=== PATIENT | female | born 1970 | race Caucasian/White ===

== ENCOUNTER → 2017-11-12 | Outpatient (CLI) | payer OTHER ==
[~2017-11-12] MED LIST: ALLERGY SHOTS; AZE137NAPT NS; AZIT1PAC21 PO; CETI-459 PO; CETI10CA8 PO; CICPT NS; CYCL-277 PO; ESC10 PO; HYDR-4309 PO; ISOM1TAB PO; KET10 PO; LEV112 PO; LEV125 PO; LEVO-317 PO; LEVO112T43 PO; MELA1TAB23 PO; MELA5TAB6 PO; MID PO; NAS20R NS; PER PO; PSEU-287 PO; TRAM-627 PO; VITAMIN D; XANAX PO; ZOLP-350 PO; [UNRECOGNIZED DRUG - REMARK]
--- NOTE | 2017-11-12 13:13 | RADIOLOGY IMAGING REPORT ---
FACILITY: [facility] PATIENT NAME: Jazmín Burton : 1970 MR: [id number] V: [id number] EXAM DATE: ORDERING PHYSICIAN: JOSE GERONMIO TECHNOLOGIST: Location: [facility] Patient: Jazmín Burton : 1970 Visit/Account:[id number] Date of Sevice: 11/12/2017 EXAMINATION: Cervical spine MRI without IV contrast HISTORY: Neck pain. Numbness and tingling in the left arm. COMPARISON: None. TECHNIQUE: Multi-planar, multi-sequence cervical spine MRI was performed without intravenous contras t administration. FINDINGS: Alignment: Straightening and slight reversal of the normal lordosis. Vertebral marrow signal: C2 and C3 vertebral bodies are partially obscured anteriorly secondary to ma gnetic susceptibility artifact coming from something in the anterior neck or face. Otherwise negative . Cranio-cervical junction: Negative. Visualized posterior fossa: Negative. Soft tissues: Negative. Cervical cord: The upper cervical spinal cord is not well seen secondary to motion artifact and magne tic susceptibility artifact. No definite abnormality in the spinal cord. Disc Spaces: C1-2: No significant stenosis. C2-3: Not well seen secondary to artifact. No definite abnormality. C3-4: Not well seen secondary to artifact. No definite abnormality. C4-5: Negative. C5-6: Small central disc protrusion. No significant stenosis. C6-7: Minimal disc bulge. No significant stenosis. C7-T1: Negative. Upper thoracic spine: Negative. IMPRESSION: 1. The upper cervical spine and spinal cord are not well seen secondary to motion artifact and magnet ic susceptibility artifact from something in the anterior neck or face. C1-C2, C2-C3, and C3-C4 are n ot well seen secondary to artifact. 2. Small disc protrusion at C5-C6. Minimal disc bulge at C6-C7. No significant stenosis below C3-C4. Report Dictated By: Yunior Bee MD at 11/12/2017 1:05 PM Report E-Signed By: Yunior Bee MD at 11/12/2017 1:09 PM WSN:[email or web address]
--- NOTE | 2017-11-12 13:24 | RADIOLOGY IMAGING REPORT ---
[place] [facility] [place] NAME: Jazmín Burton : 1970 MR: [id number] V: [id number] EXAM DATE: ORDERING PHYSICIAN: JOSE GERONIMO TECHNOLOGIST: Location: [facility] Patient: Jazmín Burton : 1970 Visit/Account:[id number] Date of Sevice: 11/12/2017 EXAMINATION: Lumbar spine MRI without IV contrast HISTORY: Low back pain. Lower extremity tingling. COMPARISON: Abdominal MRI dated 06/08/2012. TECHNIQUE: Multi-planar, multi-sequence lumbar spine MRI was performed without intravenous contrast administration. FINDINGS: Alignment: Normal. Vertebral marrow signal: Mild discogenic bone marrow edema at L4-L5. 13 x 11 x 10 mm T1 hypointense, T2 hyperintense bone marrow lesion in the left inferior L2 vertebral body (series 3, image 12; series 4, image 12; series 5, image 12; series 7, image 6), unchanged compared with the abdominal MRI dated 06/08/2012. Distal thoracic cord: Negative. Conus: negative, terminates at T12-L1 Cauda equina: Negative. Paravertebral soft tissues: Negative. Visualized abdominal and pelvic structures: Negative. Disc Spaces: Lower thoracic spine: Negative. L1-2: Negative. L2-3: Negative. L3-4: Mild disc desiccation and disc bulge. Mild facet hypertrophy. No significant spinal canal steno sis. Mild bilateral neural foraminal stenosis. L4-5: Mild disc desiccation with circumferential disc bulge and facet hypertrophy. Mild bilateral lat eral recess stenosis. Mild bilateral neural foraminal stenosis. L5-S1: Negative. IMPRESSION: Mild degenerative disc disease and facet hypertrophy at L3-L4 and L4-L5. Report Dictated By: Yunior Bee MD at 11/12/2017 1:09 PM Report E-Signed By: Yunior Bee MD at 11/12/2017 1:19 PM WSN:[email or web address]
== END ==
LOC: MRI 01:29
PROVIDERS: ATTEND Physician Assistant
DX: M50.222 Other cervical disc displacement at C5-C6 level (principal); M51.26 Other intervertebral disc displacement, lumbar region; M48.061 Spinal stenosis, lumbar region without neurogenic claudication
CPT/HCPCS: 72141; 72148

== ENCOUNTER 2018-01-13 12:51 | Outpatient (RCR) | payer OTHER ==
[2017-12-27 13:45] VITALS: BP 108/80
[2017-12-27 13:46] LABS: PLATELET COUNT, AUTOMATED 310 K/uL (150-450)
[~2018-01-13 12:51] MED LIST changes: -PSEU-287 PO; +PSEU120T69 PO
[2018-01-13 13:04] VITALS: BP 118/82
--- NOTE | 2018-01-13 19:08 | ONCOLOGY FOLLOW UP NOTE ---
EVENT DATE: January 13, 2018 DIAGNOSES 1. Stage III right colon cancer (TCIS, N1M0). 2. Hypothyroidism on thyroid supplement. 3. History of supraventricular tachycardia, status post ablation. 4. History of iron deficiency anemia. 5. Migraine headache. CHIEF COMPLAINT The patient is here today for followup of her colon cancer. ONCOLOGY HISTORY The patient is a 47-year-old female. PRESENTATION Change in habits for over a year with intermittent constipation and diarrhea, lower abdominal pain and 5-pound weight loss with fresh blood in the stools. DIAGNOSTIC EVALUATION Colonoscopy done on September 09, 2010 for evaluation of rectal bleeding showed 6 cm tumor of the right colon. Biopsy was positive for tubulovillous adenoma with high-grade dysplasia and carcinoma in situ. PROCEDURE Right colon partial colectomy done on 09/16/2010. PATHOLOGY Positive for tubulovillous adenoma with areas of high-grade dysplasia and carcinoma in situ. One out of 15 lymph nodes assembled were positive for a small focus of metastatic carcinoma. A second report in [place] mentioned that this focus in the lymph node was due to dysplastic cells. STAGING PET-CT scan done on October 13, 2010 did not show any evidence of active malignancy. STAGE Stage III (TCIS, N1M0). TREATMENT The patient received three courses of FOLFOX regimen started on November 07, 2010 , but she developed severe neuropathy including multiple neuropathies, so FOLFOX regimen was discontinued and patient continued her treatment with Xeloda therapy on December 26, 2010 and completed adjuvant chemotherapy June 2011. HISTORY OF PRESENT ILLNESS This patient is here today for followup of her colon cancer. She is doing fine currently except for being weak, tired and fatigued. She has weekly migraines. She has back and neck pain, and the patient was found to have bulging disks recently. She is also having constipation sometimes. PAST MEDICAL HISTORY 1. Supraventricular tachycardia status post ablation, December 2006. 2. Migraine. 3. Hypothyroidism on thyroid supplement. PAST SURGICAL HISTORY 1. Partial hysterectomy April 2004 for prolapsed uterus. 2. Tonsillectomy as a child. 3. Hemorrhoidectomy on September 09, 2010. 4. Intradermal nevus resection on September 09, 2010. 5. Right thigh biopsy of the intradermal nevus on September 09, 2010. 6. Thyroid biopsy of the right thyroid nodule. SOCIAL HISTORY The patient is . She has a son and daughter. 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 She has about three drinks per week. She has never smoked. No abuse of drugs. FAMILY HISTORY Maternal uncle had colon cancer at the age of fifty-nine. Paternal grandmother with uterine cancer at the age of ninety-one. Maternal aunt with breast cancer in her seventies. Maternal aunt with colon cancer at age sixty-five. This maternal aunt has also a history of lymphoma. Father had colon polyp at the age of sixty. CURRENT MEDICATIONS 1. Pseudoephedrine, Sudafed 120 mg tablet daily. 2. Levothyroxine 112 mcg daily. 3. Zyrtec 10 mg as needed. 4. Nasacort 16.5 gm daily. ALLERGIES No known drug allergies. REVIEW OF SYSTEMS CONSTITUTIONAL: No appetite or weight change. No fever, chills or sweating. No recent infection. HEENT: Ears: No tinnitus or hearing problem. Nose: No nasal discharge or epistaxis. Throat: No sore throat or mouth ulcers. Eyes: No diplopia or visual changes. RESPIRATORY: No shortness of breath. No cough, expectoration or hemoptysis. CARDIOVASCULAR: No chest pain, orthopnea, or paroxysmal nocturnal dyspnea (PND) . No edema. No palpitations. GASTROINTESTINAL: The patient has constipation. GENITOURINARY: No hematuria or dysuria. MUSCULOSKELETAL: She has back and neck pain due to bulging disks. NEUROLOGICAL: She has weekly migraine. HEMATOLOGIC/LYMPHATIC: No bleeding or easy bruising. She is weak, tired and fatigued. No enlarged lymph nodes. SKIN: No skin rash or lumps. PSYCHIATRIC: No anxiety or depression. No known drug allergies. PHYSICAL EXAMINATION GENERAL: Looks stable. Well-developed, well-nourished, and in no acute distress. VITAL SIGNS: Blood pressure 118/82, pulse 66 per minute, respirations 16 per minute, temperature 97.2, pulse ox 99% on room air. HEENT: Head: Atraumatic. No sinus tenderness to palpation. Eyes: No icterus or conjunctivitis. Mouth and throat: No oral thrush or mucositis. NECK: Supple. No cervical or supraclavicular lymphadenopathy. LUNGS: Clear to auscultation and percussion bilaterally. HEART: Regular rate and rhythm. No gallops, murmurs, clicks or rubs. ABDOMEN: Soft and lax. No tenderness. No hepatosplenomegaly. No masses. EXTREMITIES: No cyanosis, clubbing or edema. LYMPHATICS: No peripheral lymphadenopathy. NEUROLOGICAL: Conscious, alert and oriented times three. No focal motor or sensory deficits. PSYCHIATRIC: Mood and affect appear normal. SKIN: No skin rash, bruise or purpuric eruption. DIAGNOSTIC DATA CBC showed white count 8000, hemoglobin 14.4, hematocrit 42.2, platelets 310, 000. Chem panel is totally normal. Vitamin D level is 32. CEA is normal at 1.2. ASSESSMENT 1. 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 One out of 15 lymph nodes was positive for a small focus of metastatic adenocarcinoma. The patient was diagnosed with stage III based on N1 status. Patient received three courses of FOLFOX between October through December 05, 2010. 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 The patient continued her adjuvant chemotherapy with capecitabine between December 26, 2010 through June 2011. Her current CEA is normal at 1.2. Patient is doing fine. Her repeat colonoscopy showed a polyp with recommendation of colonoscopy in three to five years. I am planning to continue followup. I will see her again in a year from now with CBC, chem panel and CEA. 2. Hypothyroidism, on supplement. 3. Vitamin D deficiency, currently on vitamin D supplement. Her current vitamin D level is 32, which is sufficient. We will continue vitamin D at 1000 units daily. 4. Migraine headache, followed by her neurologist for that. PLAN 1. Continue followup. 2. The patient to return in one year with CBC, chem panel and CEA. 3. Patient to contact us for any new concern or complaints. LORA
== END 2018-02-04 16:22 | disposition home or self-care (01) ==
LOC: ONC 12:51
PROVIDERS: ATTEND Internal Medicine Hematology
DX: Z85.038 Personal history of other malignant neoplasm of large intestine (principal); E03.9 Hypothyroidism, unspecified; E55.9 Vitamin D deficiency, unspecified; G43.909 Migraine, unspecified, not intractable, without status migrainosus; R53.1 Weakness; R53.83 Other fatigue; Z79.899 Other long term (current) drug therapy
CPT/HCPCS: 36415; 82040; 82247; 82306; 82310; 82374; 82378; 82435; 82565; 82947; 84075; 84132; 84155; 84295; 84450; 84460; 84520; 85025; 99212

== ENCOUNTER 2018-05-02 16:25 | Emergency (ER) | payer OTHER ==
[2018-05-02 17:23] LABS: PLATELET COUNT, AUTOMATED 275 K/uL (150-450)
[2018-05-02] MEDS ORDERED: DULO60CA56 PO (17:39)
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
[2018-05-02] MEDS ORDERED: MULTIVITAMINS(*) 10 ML VIAL 10 ML, THIAMINE HCL(*) 200 MG/2 ML IN 100 MG, FOLIC ACID(*)... IV ONE (18:05)
[2018-05-02] MEDS ORDERED: FAMOTIDINE(*) 20MG/50ML PREMIX 50 ML IVPB ONE (18:45)
[2018-05-02] MEDS ORDERED: DULO30CA35 PO (18:48)
[2018-05-02] MEDS ORDERED: ESOM40CA42 PO (18:49)
[2018-05-02 18:59] VITALS: BP 132/96
== END 2018-05-02 19:00 | disposition home or self-care (01) ==
LOC: ER 17:21
DX: F10.10 Alcohol abuse, uncomplicated (principal); K21.9 Gastro-esophageal reflux disease without esophagitis; F32.9 Major depressive disorder, single episode, unspecified
CPT/HCPCS: 80305; 80320; 80329; 81001; 82040; 82150; 82247; 82310; 82374; 82435; 82565; 82947; 83690; 83735; 84075; 84132; 84155; 84295; 84443; 84450; 84460; 84520; 84703; 85025; 86677; 99283

== ENCOUNTER 2018-05-24 11:40 | Emergency (ER) | payer OTHER ==
[~2018-05-24 11:40] MED LIST changes: +DULO30CA35 PO; +DULO60CA56 PO; +ESOM40CA42 PO
--- NOTE | 2018-05-24 12:42 | EKG ---
FACILITY: [facility] PATIENT NAME: SANDRINE BOWLING : [id number] MR: [id number] V: [id number] EXAM DATE: ORDERING PHYSICIAN: GI JAMES TECHNOLOGIST: ALESIA Test Reason : BHS Blood Pressure : / mmHG Vent. Rate : 079 BPM Atrial Rate : 079 BPM P-R Int : 092 ms QRS Dur : 078 ms QT Int : 378 ms P-R-T Axes : 056 086 049 degrees QTc Int : 433 ms Sinus rhythm with short AK Otherwise normal ECG When compared with ECG of 14-OCT-2016 19:55, No significant change was found Confirmed by Dangelo Sosa ([id number] on 05/25/2018 12:09:15 AM Referred By: JACOB Confirmed By:Dangelo Napoles
[2018-05-24 12:56] LABS: PLATELET COUNT, AUTOMATED 355 K/uL (150-450)
--- NOTE | 2018-05-24 13:41 | ER Report ---
History and Physical Time Seen By MD: 12:15 Hx. of Stated Complaint: "I am having extreme anxiety and depression and drinking alot. I dont want to live like this. I need help" HPI/ISRAEL CHIEF COMPLAINT: Requesting admission for alcohol abuse HISTORY OF PRESENT ILLNESS: Patient is a very pleasant 48-year-old female who presents to the emergency Department with concerns of alcohol abuse depression and some fleeting suicidal ideation. Patient drinks between 1 and 1-1/2 bottles of wine each night although last evening she drank a bottle and a half of wine and had some shots of vodka. He feels that she has a problem with alcohol. She has gone through withdrawal in the past. She is also treated for depression and is medicated with Cymbalta 60 mg daily but she quit approximately one week ago. She states that she was hoping that she just would not wake up this morning patient states that her "likes to drink as well" she states that she is estranged from her 24-year-old daughter this is secondary to problems with her alcohol use and abuse. REVIEW OF SYSTEMS: Respiratory: No cough, no dyspnea. Cardiovascular: No chest pain, no palpitations. Gastrointestinal: No vomiting, no abdominal pain. Musculoskeletal: No back pain. Allergies: Coded Allergies: No Known Drug Allergies (Verified , 05/24/18) Uncoded Allergies: HAYFEVER (Allergy, Unknown, 03/15/14) Home Meds Reported Medications Melatonin (MELATONIN) 5 Mg Tablet, 5 MG PO HS 12/29/16 Isomethepten/Caf/Acetaminophen (Vuibfqskxq-Tpcl-Mfsloexrwmzfx) 1 Each Tablet, 2 TAB PO PRN Y for MIGRAINE 12/29/16 Levothyroxine Sodium (LEVOXYL) 125 Mcg Tablet, 112 MCG PO QDAY, TAB 12/29/16 Cetirizine Hcl (Zyrtec) 10 Mg Capsule, 10 MG PO PRN, 0 Refills 09/17/11 Triamcinolone Acet (Nasacort Aq) 16.5 Gm [place], 1 SPRAY NS DAILY Y, 0 Refills 09/17/11 Discontinued Reported Medications Duloxetine Hcl (CYMBALTA) 60 Mg Capsule.dr, 60 MG PO QDAY, #5 CAP 05/02/18 Discontinued Scripts Esomeprazole Magnesium (NEXIUM) 40 Mg Capsule.dr, 1 CAP PO QDAY, #30 CAP Prov:ELIECER FARAH CHARLIE 05/02/18 Duloxetine Hcl (CYMBALTA) 30 Mg Capsule.dr, 30 MG PO QDAY, #30 CAP Prov:ELIECER FARAH CHARLIE 05/02/18 Past Medical/Surgical History Past medical history significant for supraventricular tachycardia; status post ablation. History of depression Hx Smoking: No Smoking Status: Never Smoker Hx Substance Use Disorder: No Hx Alcohol Use: Yes (OCC USE) Constitutional Vital Sign - Last 24 Hours 05/24/18 05/24/18 05/24/18 05/24/18 12:09 12:26 12:30 12:40 Temp 97.1 Pulse 98 80 Resp 20 17 B/P (MAP) 110/71 127/86 (100) 117/103 (108) Pulse Ox 92 O2 Delivery Room Air 05/24/18 05/24/18 05/24/18 05/24/18 13:00 13:10 13:30 13:35 Pulse 74 ??? Resp 8 B/P (MAP) 117/86 (96) 110/75 (87) 05/24/18 05/24/18 05/24/18 05/24/18 13:50 14:00 14:05 14:20 Pulse 78 78 81 Resp 10 0 13 B/P (MAP) 118/84 (95) 05/24/18 05/24/18 14:30 14:35 Pulse 82 Resp 14 B/P (MAP) 124/79 (94) Physical Exam General Appearance: The patient is alert, has no immediate need for airway protection and no signs of toxicity. [ ] Eyes: Pupils equal and round no pallor or injection. ENT, Mouth: Mucous membranes are moist. Respiratory: There are no retractions, lungs are clear to auscultation. Cardiovascular: Regular rate and rhythm. [ ] Gastrointestinal: Abdomen is soft and non tender, no masses, bowel sounds normal. Neurological: Awake and alert Skin: Warm and dry, no rashes. Musculoskeletal: Neck is supple non tender. Extremities are nontender, nonswollen and have full range of motion. Psychiatric: Patient is tearful affect congruent with mood, patient with some thoughts of suicide without active plan. Patient does not seem to be responding to any internal stimuli. For process is logical and goal-directed. Medical Decision Making Data Points Result Diagram: 05/24/18 1251 05/24/18 1251 Laboratory Hematology Test 05/24/18 12:51 05/24/18 13:38 Red Blood Count 4.71 M/uL (4.17-5.56) Mean Corpuscular Volume 88.7 fL (80.0-96.0) Mean Corpuscular Hemoglobin 31.4 pg (26.0-33.0) Mean Corpuscular Hemoglobin Concent 35.4 g/dL (32.0-36.0) Red Cell Distribution Width 12.7 % (11.5-14.5) Mean Platelet Volume 8.2 fL (7.2-11.1) Neutrophils (%) (Auto) 54.6 % (39.4-72.5) Lymphocytes (%) (Auto) 33.2 % (17.6-49.6) Monocytes (%) (Auto) 11.4 % (4.1-12.4) Eosinophils (%) (Auto) 0.4 % (0.4-6.7) Basophils (%) (Auto) 0.4 % (0.3-1.4) Nucleated RBC Relative Count (auto) 0.0 /100WBC Neutrophils # (Auto) 5.5 K/uL (2.0-7.4) Lymphocytes # (Auto) 3.4 K/uL (1.3-3.6) Monocytes # (Auto) 1.1 K/uL (0.3-1.0) Eosinophils # (Auto) 0.0 K/uL (0.0-0.5) Basophils # (Auto) 0.0 K/uL (0.0-0.1) Nucleated RBC Absolute Count (auto) 0.00 K/uL Sodium Level 138 mmol/L (137-145) Potassium Level 4.0 mmol/L (3.5-5.0) Chloride Level 103 mmol/L (98-107) Carbon Dioxide Level 26 mmol/L (22-31) Blood Urea Nitrogen 20 mg/dl (7-18) Creatinine 0.80 mg/dl (0.52-1.04) Glomerular Filtration Rate Calc > 60.0 Random Glucose 102 mg/dl (75-110) Calcium Level 9.3 mg/dl (8.4-10.2) Magnesium Level 1.6 mg/dl (1.7-2.2) Total Bilirubin 0.4 mg/dl (0.2-1.3) Aspartate Amino Transf (AST/SGOT) 31 U/L (0-35) Alanine Aminotransferase (ALT/SGPT) 43 U/L (0-56) Alkaline Phosphatase 43 U/L (0-126) Total Protein 7.0 g/dl (6.3-8.2) Albumin 4.5 g/dl (3.5-5.0) Thyroid Stimulating Hormone (TSH) 0.88 uIU/ml (0.46-4.68) Salicylates Level < 10 mg/L Salicylate Last Dose Date unk Acetaminophen Level < 10 ug/ml Serum Alcohol < 10 mg/dl Urine Color Straw Urine Clarity Clear Urine pH 7.0 pH (4.8-9.5) Urine Specific [place] 1.011 Urine Protein Negative mg/dL (NEGATIVE) Urine Glucose (UA) Negative mg/dL (NEGATIVE) Urine Ketones Negative mg/dL (NEGATIVE) Urine Blood Negative (NEGATIVE) Urine Nitrite Negative (NEGATIVE) Urine Bilirubin Negative (NEGATIVE) Urine Urobilinogen Negative mg/dL (0.2-1.9) Urine Leukocyte Esterase Negative (NEGATIVE) Urine RBC None /HPF (0-2/HPF) Urine WBC None /HPF (0-5/HPF) Urine Squamous Epithelial Cells Moderate /LPF (</=FEW) Urine Bacteria Negative /HPF (NONE-FEW) Urine Mucus None /HPF (NONE-FEW) Urine HCG, Qualitative Negative (NEGATIVE) Urine Opiates Screen Negative Urine Barbiturates Screen Negative Ur Tricyclic Antidepressants Screen Negative Urine Phencyclidine Screen Negative Urine Amphetamines Screen Negative Urine Benzodiazepines Screen Negative Urine Cocaine Screen Negative Urine Cannabinoids Screen Negative Chemistry Test 05/24/18 12:51 05/24/18 13:38 White Blood Count 10.1 k/uL (4.5-11.0) Red Blood Count 4.71 M/uL (4.17-5.56) Hemoglobin 14.8 g/dL (12.0-16.0) Hematocrit 41.8 % (34.0-47.0) Mean Corpuscular Volume 88.7 fL (80.0-96.0) Mean Corpuscular Hemoglobin 31.4 pg (26.0-33.0) Mean Corpuscular Hemoglobin Concent 35.4 g/dL (32.0-36.0) Red Cell Distribution Width 12.7 % (11.5-14.5) Platelet Count 355 K/uL (150-450) Mean Platelet Volume 8.2 fL (7.2-11.1) Neutrophils (%) (Auto) 54.6 % (39.4-72.5) Lymphocytes (%) (Auto) 33.2 % (17.6-49.6) Monocytes (%) (Auto) 11.4 % (4.1-12.4) Eosinophils (%) (Auto) 0.4 % (0.4-6.7) Basophils (%) (Auto) 0.4 % (0.3-1.4) Nucleated RBC Relative Count (auto) 0.0 /100WBC Neutrophils # (Auto) 5.5 K/uL (2.0-7.4) Lymphocytes # (Auto) 3.4 K/uL (1.3-3.6) Monocytes # (Auto) 1.1 K/uL (0.3-1.0) Eosinophils # (Auto) 0.0 K/uL (0.0-0.5) Basophils # (Auto) 0.0 K/uL (0.0-0.1) Nucleated RBC Absolute Count (auto) 0.00 K/uL Glomerular Filtration Rate Calc > 60.0 Calcium Level 9.3 mg/dl (8.4-10.2) Magnesium Level 1.6 mg/dl (1.7-2.2) Total Bilirubin 0.4 mg/dl (0.2-1.3) Aspartate Amino Transf (AST/SGOT) 31 U/L (0-35) Alanine Aminotransferase (ALT/SGPT) 43 U/L (0-56) Alkaline Phosphatase 43 U/L (0-126) Total Protein 7.0 g/dl (6.3-8.2) Albumin 4.5 g/dl (3.5-5.0) Thyroid Stimulating Hormone (TSH) 0.88 uIU/ml (0.46-4.68) Salicylates Level < 10 mg/L Salicylate Last Dose Date unk Acetaminophen Level < 10 ug/ml Serum Alcohol < 10 mg/dl Urine Color Straw Urine Clarity Clear Urine pH 7.0 pH (4.8-9.5) Urine Specific [place] 1.011 Urine Protein Negative mg/dL (NEGATIVE) Urine Glucose (UA) Negative mg/dL (NEGATIVE) Urine Ketones Negative mg/dL (NEGATIVE) Urine Blood Negative (NEGATIVE) Urine Nitrite Negative (NEGATIVE) Urine Bilirubin Negative (NEGATIVE) Urine Urobilinogen Negative mg/dL (0.2-1.9) Urine Leukocyte Esterase Negative (NEGATIVE) Urine RBC None /HPF (0-2/HPF) Urine WBC None /HPF (0-5/HPF) Urine Squamous Epithelial Cells Moderate /LPF (</=FEW) Urine Bacteria Negative /HPF (NONE-FEW) Urine Mucus None /HPF (NONE-FEW) Urine HCG, Qualitative Negative (NEGATIVE) Urine Opiates Screen Negative Urine Barbiturates Screen Negative Ur Tricyclic Antidepressants Screen Negative Urine Phencyclidine Screen Negative Urine Amphetamines Screen Negative Urine Benzodiazepines Screen Negative Urine Cocaine Screen Negative Urine Cannabinoids Screen Negative Toxicology Test 05/24/18 12:51 05/24/18 13:38 Salicylates Level < 10 mg/L Salicylate Last Dose Date unk Acetaminophen Level < 10 ug/ml Serum Alcohol < 10 mg/dl Urine Opiates Screen Negative Urine Barbiturates Screen Negative Ur Tricyclic Antidepressants Screen Negative Urine Phencyclidine Screen Negative Urine Amphetamines Screen Negative Urine Benzodiazepines Screen Negative Urine Cocaine Screen Negative Urine Cannabinoids Screen Negative Urinalysis Test 05/24/18 13:38 Urine Color Straw Urine Clarity Clear Urine pH 7.0 pH (4.8-9.5) Urine Specific [place] 1.011 Urine Protein Negative mg/dL (NEGATIVE) Urine Glucose (UA) Negative mg/dL (NEGATIVE) Urine Ketones Negative mg/dL (NEGATIVE) Urine Blood Negative (NEGATIVE) Urine Nitrite Negative (NEGATIVE) Urine Bilirubin Negative (NEGATIVE) Urine Urobilinogen Negative mg/dL (0.2-1.9) Urine Leukocyte Esterase Negative (NEGATIVE) Urine RBC None /HPF (0-2/HPF) Urine WBC None /HPF (0-5/HPF) Urine Squamous Epithelial Cells Moderate /LPF (</=FEW) Urine Bacteria Negative /HPF (NONE-FEW) Urine Mucus None /HPF (NONE-FEW) Urine HCG, Qualitative Negative (NEGATIVE) EKG/Imaging Monitor Interpretation: Normal Sinus Rhythm (with short [place]) ED Course/Re-evaluation ED Course 05/24/2018 1:37:43 pm patient with suicidal ideation, depression and wishes to come in for alcohol abuse. Patient is calm and cooperative. Medical screening exam is unremarkable we'll call for admission Decision to Disposition Date: May 24, 2018 Decision to Disposition Time: 16:07 Depart Departure Latest Vital Signs Vital Signs Date Time Temp Pulse Resp B/P (MAP) Pulse Ox O2 Delivery O2 Flow Rate FiO2 05/24/18 14:35 82 14 05/24/18 14:30 124/79 (94) 05/24/18 12:09 97.1 92 Room Air Impression: Primary Impression: Depression Additional Impression: Alcohol abuse Condition: Improved Disposition: XFER TO [facility] (to Dr Healy) Referrals: JOSE GERONIMO PA-C (PCP) Problem Qualifiers Primary Impression: Depression Depression Type: reactive depression Qualified Codes: F32.9 - Major depressive disorder, single episode, unspecified GI JAMES MD May 24, 2018 13:41
[2018-05-24 14:30] VITALS: BP 124/79
[2018-05-25] MEDS ORDERED: DULO60CA56 PO (12:36)
[2018-05-25] MEDS ORDERED: DULO30CA35 PO (12:50)
== END 2018-05-24 15:20 ==
LOC: ER 11:59
DX: F32.9 Major depressive disorder, single episode, unspecified (principal); F10.10 Alcohol abuse, uncomplicated; Y90.0 Blood alcohol level of less than 20 mg/100 ml; Z79.899 Other long term (current) drug therapy
CPT/HCPCS: 36415; 80305; 80320; 80329; 81001; 81025; 82040; 82247; 82310; 82374; 82435; 82565; 82947; 83735; 84075; 84132; 84155; 84295; 84443; 84450; 84460; 84520; 85025; 93005; 99284

== ENCOUNTER 2018-05-24 14:35 | Inpatient (IN) | payer OTHER ==
[~2018-05-24] VITALS: Ht 172.7 cm; Wt 66.2 kg
[2018-05-24] MEDS ORDERED: MAG HYD/AL HYD/SIMETH 30ML UDC PO PRN (15:10)
[2018-05-24 15:39] VITALS: BP 105/80
[2018-05-24] MEDS: DIAZEPAM 10 MG TAB PO PRN ×2 (16:09→21:08)
[2018-05-24] MEDS ORDERED: CETIRIZINE HCL 10 MG TAB PO PRN (19:15)
[2018-05-24] MEDS ORDERED: CAFF PO PRN (19:25)
[2018-05-24] MEDS ORDERED: ACETAMINOPH PO PRN (19:25)
[2018-05-24] MEDS ORDERED: [UNRECOGNIZED DRUG - OTHER] OU PRN (19:25)
[2018-05-24] MEDS ORDERED: ISOMETHEPTENE PO PRN (19:25)
[2018-05-24 20:29] VITALS: BP 128/78
[2018-05-25] MEDS: LEVOTHYROXINE SOD 0.112 MG TAB PO SCH (05:58)
[2018-05-25 06:00] VITALS: BP 111/70
[2018-05-25] MEDS: FOLIC ACID 1 MG TAB PO SCH (08:14)
[2018-05-25] MEDS: MULTIVITAMINS TAB PO SCH (08:14)
[2018-05-25] MEDS: THIAMINE HCL 100 MG TAB PO SCH (08:14)
[2018-05-25] MEDS ORDERED: IBUPROFEN 600 MG TAB PO PRN (09:20)
[2018-05-25 10:00] VITALS: BP 104/81
[2018-05-25 10:30] VITALS: BP 92/64
[2018-05-25] MEDS ORDERED: DULO60CA56 PO (12:36)
[2018-05-25] MEDS ORDERED: DULO30CA35 PO (12:50)
[2018-05-25] MEDS: OMEGA-3 500 MG CAP PO SCH (13:43)
[2018-05-25] MEDS: DULoxetine HCL 30 MG CAPCR PO SCH (13:43)
[2018-05-25] MEDS: CHOLECALCIFEROL 1000 UNIT TAB PO SCH (13:43)
[2018-05-25 14:40] VITALS: BP 118/79
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
[2018-05-25 18:38] VITALS: BP 110/80
[2018-05-25] MEDS: traZODone HCL 50 MG TAB PO SCH (21:27)
[2018-05-25] MEDS: MELATONIN 3 MG TAB PO SCH (21:27)
[2018-05-26] MEDS: LEVOTHYROXINE SOD 0.112 MG TAB PO SCH (05:40)
[2018-05-26 06:19] VITALS: BP 110/79
[2018-05-26] MEDS: DULoxetine HCL 30 MG CAPCR PO SCH (08:04)
[2018-05-26] MEDS: CHOLECALCIFEROL 1000 UNIT TAB PO SCH (08:04)
[2018-05-26] MEDS: THIAMINE HCL 100 MG TAB PO SCH (08:04)
[2018-05-26] MEDS: FOLIC ACID 1 MG TAB PO SCH (08:04)
[2018-05-26] MEDS: MULTIVITAMINS TAB PO SCH (08:05)
[2018-05-26] MEDS: OMEGA-3 500 MG CAP PO SCH (08:05)
[2018-05-26 09:28] VITALS: BP 102/71
--- NOTE | 2018-05-26 10:07 | [facility] Progress Note ---
[facility] - Subjective Progress Notes Subjective Patient's alcohol withdrawal nearing completion, mood continues to improve. Patient contemplating her relationship with her upon discharge, and how alcohol will be absent for her, but possibly still part of her 's life. Patient reports good sleep on trazodone, and wishes to continue current dose of cymbalta. Mood improved, no other concerns. Suicidal Ideation: Resolving Homicidal Ideation: None [facility] - Objective Physical Exam Vital Signs Vital Signs Date Time Temp Pulse Resp B/P (MAP) Pulse Ox O2 Delivery O2 Flow Rate FiO2 05/26/18 09:28 98.3 94 102/71 (81) 96 Room Air 05/26/18 06:19 15 Muscle Strength and Tone: WNL Gait and Station: Steady [facility] Medications Reviewed: Side Effects, Benefits of Medication, Risks Allergies Reviewed: Yes Mental Status Exam General Appearance: Casual, Well Groomed, Good Eye Contact, Cooperative, Polite , Good Interaction, No Tearful, No Psychomotor Agitation, No Psychomotor Retardation, No Bizarre Mannerisms, No Tics Speech: Clear, Spontaneous, Normal Rate, Normal Rhythm, Normal Volume, Normal Tone, Garbled, Rambling, Inappropriate Mood: Dysthmic/Depressed (improved) Affect: Full and Appropriate, Calm, No Tearful, No Anxious, No Agitated Thought Process: Organized, Logical, Goal Directed, No Loose Associations, No Flight of Ideas Thought Content: No Suicidal Ideation, No Homicidal Ideation, No Delusions, No Auditory Halllucinations, No Visual Hallucinations, No Thought Broadcasting, No Ideas of Reference, No Obsessions, No Compulsions Sensorium: Clear Cognition: Alert & Oriented-Person, Alert & Oriented-Place, Alert & Oriented- Time, Srkse-Kmwmyeco-Hcverdion Memory: Immediate, Recent, Remote Intelligence: Average Insight Judgment: Fair (in absence of alcohol) [facility] Assessment and Plan [id number] Encounter Date: May 26, 2018 [id number] Encounter Time: 10:00 [facility] Plan: Necessary Precautions, Individual/Group Therapy, Admin/Titrate Meds, Educate Patient Tobacco Medications: Not Appropriate Condition Multpiple Antipsychotics Used: No Problems: (1) Alcohol withdrawal Status: Acute (2) Persistent depressive disorder Status: Chronic (3) Partner relational problem Status: Chronic (4) Alcohol use disorder, moderate, in early remission Status: Chronic Condition 1. continue treatment. 2. likely discharge tomorrow. Problem Qualifiers (1) Alcohol withdrawal: Complication of substance-induced condition: uncomplicated Qualified Codes: F10.230 - Alcohol dependence with withdrawal, uncomplicated DANIA FINK MD May 26, 2018 10:06
[2018-05-26] MEDS: traZODone HCL 50 MG TAB PO SCH (20:58)
[2018-05-26] MEDS: MELATONIN 3 MG TAB PO SCH (21:00)
[2018-05-27] MEDS: LEVOTHYROXINE SOD 0.112 MG TAB PO SCH (05:42)
[2018-05-27 05:43] VITALS: BP 121/79
[2018-05-27] MEDS: THIAMINE HCL 100 MG TAB PO SCH (07:37)
[2018-05-27] MEDS: FOLIC ACID 1 MG TAB PO SCH (07:37)
[2018-05-27] MEDS: DULoxetine HCL 30 MG CAPCR PO SCH (07:37)
[2018-05-27] MEDS: CHOLECALCIFEROL 1000 UNIT TAB PO SCH (07:37)
[2018-05-27] MEDS: MULTIVITAMINS TAB PO SCH (07:37)
[2018-05-27] MEDS: OMEGA-3 500 MG CAP PO SCH (07:37)
[2018-05-27 08:57] VITALS: BP 123/72
[2018-05-27] MEDS ORDERED: TRAZ50TA34 PO (09:28)
[2018-05-27] MEDS ORDERED: OMEG1CAP39 PO (09:29)
[2018-05-27] MEDS ORDERED: FOLI-68 PO (09:29)
[2018-05-27] MEDS ORDERED: MULT-859 PO (09:30)
[2018-05-27] MEDS ORDERED: THIA100T2 PO (09:30)
[2018-05-27] MEDS ORDERED: SYSTANODPT OU (09:31)
--- NOTE | 2018-05-27 19:33 | DISCHARGE SUMMARY ---
Patient was seen at approximately 0940 hours on the a.m. of May 27, 2018 for note concerning this dictation. FINAL DIAGNOSES PER DSM-V Alcohol use disorder moderate. Alcohol withdrawal, considered complete. Partner relational problem. Rule out substance-induced mood disorder. Likely persisting depressive disorder. Patient overall having supportive relationship, however, with spouse, although partner relational problem does likely exist secondary primary to alcohol use in both members. REASON FOR ADMISSION This is a very pleasant 48-year-old female initially admitted for alcohol withdrawal. Alcohol withdrawal was treated to completion. Clinically it was considered mild withdrawal in nature. Patient was found to have other stressors in her life, some of which are related to alcohol use. Patient even having brief suicidal ideation while on the unit, however, this did resolve. Patient was very cooperative, took an active role in her treatment. PHYSICAL EXAMINATION GENERAL: Please see emergency room note. Notable for a healthy-appearing 48- year-old female in no acute medical distress. VITAL SIGNS: At the time of admission, temperature 97.1, pulse 98, respiratory rate 20, blood pressure 110/71 and pulse oximetry 92 on room air. LABORATORY DATA CBC unremarkable. CMP notable for magnesium slightly low at 1.6, otherwise unremarkable. TSH 0.88 at the time of admission. Urinalysis unremarkable. screen negative. Toxicology screen negative with a nondetectable serum alcohol level at the time of admission. MENTAL STATUS EXAMINATION AT THE TIME OF DISCHARGE GENERAL APPEARANCE, BEHAVIOR AND ATTITUDE: This is a very polite, cooperative 48-year-old female, well groomed, making good eye contact, interacting well with this provider, treatment team staff and her present in the room. No bizarre mannerisms or tics. No periods of tearfulness. SPEECH: Within normal limits, regular rate, rhythm, volume and tone. MOOD: Described as good. AFFECT: Full and bright. THOUGHT PROCESSES: Logical, goal directed. No loose associations or flight of ideas. THOUGHT CONTENT: Free of auditory or visual hallucinations, ideas of reference , thought broadcastings, delusions, obsessions, compulsions. Patient adamantly denying suicidal or homicidal ideation. SENSORIUM: Clear. COGNITION: Alert and oriented to person, place, time and situation. MEMORY: Immediate, recent and remote estimated intact. INTELLIGENCE: Average based on interview. INSIGHT AND JUDGMENT: Considered grossly intact in the absence of alcohol use. RESULTS OF TESTING IMAGING: None. LABORATORY DATA: See above. CONSULTATIONS: None. TREATMENT Patient received medications, participated in individual and group therapy. HOSPITAL COURSE Patient's alcohol withdrawal was considered mild in nature and treated to completion with diazepam per [facility] protocol. Patient then started on sleep aid trazodone and for its antidepressant effects. Patient restarted Cymbalta at 30 mg q.a.m., which she had stopped abruptly prior to admission. The patient continued to improve, took an active role in her treatment. CONDITION OF PATIENT ON DISCHARGE Stable. Considered minimal risk to herself or others and appropriate for outpatient management. DISPOSITION Patient discharged to home to the care of her . It was encouraged that they both abstain from all alcohol. Patient would go to and obtain a sponsor. Patient would follow up with outpatient medication management and therapy. Crisis line was given should symptoms return. Discharge medications included Cymbalta 30 mg q.a.m., trazodone 50-150 mg p.o. at bedtime p.r.n. for insomnia, fish oil 1000 mg daily, folic acid 1 mg daily over the counter, melatonin as needed over the counter, Synthroid 112 mcg daily, multivitamin with mineral daily, thiamine 100 mg daily over the counter, vitamin D3 1000 international units daily. Patient can take Motrin and Prodrin as needed for headache and continue to use Systane eyedrops as needed. Zyrtec 10 mg could be continued as needed as well. Risks, benefits and alternatives of the above discharge plan were discussed. Informed consent was given to proceed with above discharge plan by this competent patient and patient's present at the time of discharge. LORA
== END 2018-05-27 13:15 | disposition home or self-care (01) | DRG 897 ==
LOC: BHS 14:35
PROVIDERS: ADMIT Psychiatry & Neurology Psychiatry; ATTEND Psychiatry & Neurology Psychiatry
DX: F10.230 Alcohol dependence with withdrawal, uncomplicated (principal); R45.851 Suicidal ideations; F10.24 Alcohol dependence with alcohol-induced mood disorder; F34.1 Dysthymic disorder; Y90.0 Blood alcohol level of less than 20 mg/100 ml; Z62.820 Parent-biological child conflict; Z63.0 Problems in relationship with spouse or partner; Z91.410 Personal history of adult physical and sexual abuse; Z91.411 Personal history of adult psychological abuse; Z90.710 Acquired absence of both cervix and uterus; Z91.5 Personal history of self-harm

== ENCOUNTER → 2019-01-04 | Outpatient (CLI) | payer OTHER ==
[~2019-01-04] MED LIST changes: +FOLI-68 PO; -HYDR-4309 PO; +HYDR-653 PO; +IOPAMIDOL 76% 150 ML INFUS BTL 150 ML ONE; +MULT-859 PO; +OMEG1CAP39 PO; +SYSTANODPT OU; +THIA100T2 PO; +TRAZ50TA34 PO
--- NOTE | 2019-01-04 20:27 | RADIOLOGY IMAGING REPORT ---
FACILITY: [facility] PATIENT NAME: Jazmín uHbbard : 1970 MR: [id number] V: [id number] EXAM DATE: ORDERING PHYSICIAN: YVON SALVADOR TECHNOLOGIST: Location: [facility] Patient: Jazmín Hubbard : 1970 Visit/Account:[id number] Date of Sevice: 01/04/2019 EXAMINATION: CT abdomen and pelvis without and with IV contrast HISTORY: Lower abdominal pain. Right lower quadrant pain. History of right colectomy for colon cance r. TECHNIQUE: Axial CT images of the abdomen and pelvis were obtained without and with IV contrast, wi th coronal and sagittal 2D reconstructed images. One of the following dose optimization techniques was utilized in the performance of this exam: Autom ated exposure control; adjustment of the mA and/or kV according to the patient's size; or use of an i terative reconstruction technique. Specific details can be referenced in the facility's radiology C T exam operational policy. Contrast: 75 mL of IV [id number]. COMPARISON: 08/19/2015. FINDINGS: Liver: Negative. Gallbladder and bile ducts: The gallbladder is contracted. No bile duct dilatation. Spleen: Negative. Pancreas: Negative. Adrenal glands: Negative. Kidneys: Negative. No hydronephrosis or urinary calculi. Bowel and peritoneum: The small bowel and colon are normal in caliber. No bowel obstruction. There a re surgical changes of a prior right hemicolectomy with an ileocolonic anastomosis in the mid right a bdomen. There is moderate wall thickening of the the remaining right colon near the anastomosis and e xtending along the staple line and distal ileum near the anastomosis, with surrounding mesenteric sof t tissue stranding and areas of mucosal hyperenhancement. The upstream small bowel is normal in calib er without evidence of obstruction. No free fluid or free intraperitoneal air. Pelvic structures: Hysterectomy. There is a peripherally enhancing 2.3 cm cyst along the right ad nexa, likely a physiologic corpus luteum. The urinary bladder is decompressed. Lymph node assessment: There are scattered subcentimeter mesenteric and retroperitoneal lymph nodes without any pathologically enlarged lymph nodes in the abdomen or pelvis. Vessels: The abdominal aorta and IVC are patent and normal in caliber. The central mesenteric vascul ature is patent. The hepatic veins, portal veins, and portal tributaries are patent. Musculoskeletal: No acute osseous findings or suspicious focal osseous lesions. Mild degenerative c hanges at the L4-L5 disc space. Body wall: Negative. Lung bases: Negative. IMPRESSION: 1. Prior right hemicolectomy with an ileocolonic anastomosis in the mid right abdomen. 2. There is wall thickening along the proximal colon at the anastomosis and extending along the dista l ileum with surrounding mesenteric edema and some mucosal hyperenhancement. CT appearance is fairly nonspecific. This could represent an infectious or inflammatory enterocolitis centered on the region of the anastomosis. Ischemic colitis or ulceration at the region of the anastomosis is not excluded. There is no definite CT evidence of a recurrent soft tissue mass, but recurrent malignancy in the reg ion of the anastomosis is also not excluded, and short-term imaging follow-up may be warranted versus follow-up colonoscopy. 3. No other acute intra-abdominal findings. The upstream small bowel is normal in caliber without mena dence of obstruction. 4. Prior hysterectomy. A peripherally enhancing 2.3 cm right adnexal cyst likely represents a physiol ogic corpus luteum. Findings were discussed with YVON SALVADOR at 01/04/2019 8:15 PM. Report Dictated By: John Cabello MD at 01/04/2019 8:00 PM Report E-Signed By: John Cabello MD at 01/04/2019 8:23 PM WSN:[id number]
== END ==
LOC: CT 16:22
PROVIDERS: ATTEND Family Medicine
DX: Z93.3 Colostomy status (principal); Z90.79 Acquired absence of other genital organ(s)
CPT/HCPCS: 74178; Q9967

== ENCOUNTER 2019-01-30 01:17 | Day surgery (SDC) | payer OTHER ==
[2019-01-30] VITALS (7 sets, daily range): BP systolic 98–110; BP diastolic 66–82
[~2019-01-30] VITALS: Ht 172.7 cm; Wt 54.4 kg
[~2019-01-30 01:17] MED LIST changes: +ARI2 PO; +CHOL10005 PO; +CIPR-344 PO; +DOCU-416 PO; +FOLI0.8T29 PO; -IOPAMIDOL 76% 150 ML INFUS BTL 150 ML ONE; +METR500T15 PO; +OMEG-11 PO; +SERT-1 PO; +TRAZ150T8 PO
[2019-01-30] MEDS ORDERED: LIDOCAINE/SOD BICARB 8.4% SYR ID ONE (06:30)
[2019-01-30] MEDS ORDERED: NORMOSOL R SOLN(*) 1000 ML BAG 1,000 ML IV PRN (06:30)
[2019-01-30] MEDS ORDERED: PROPOFOL EMUL(*) 10MG/ML 20 ML 20 ML ONE ×2 (08:03→08:19)
--- NOTE | 2019-01-30 09:21 | Short(Outpt) Discharge Summary ---
Discharge Summary Reason for Hosp/Final Diag: (1) Abnormal CT scan, colon Status: Chronic Hospital Course & Plan: Colonoscopy with polypectomy x5 completed without problems. (2) History of colon cancer Status: Chronic (3) Right sided abdominal pain Status: Chronic Departure Discharge to: Home, Self Care Discharge Instructions Home Meds Active Scripts Metronidazole (METRONIDAZOLE) 500 Mg Tablet, 1 TAB PO TID, #30 TAB 0 Refills Prov:VIRGINIA FAM MD 01/18/19 Ciprofloxacin Hcl 500 Mg Tab (CIPRO 500 MG TAB) 500 Mg Tablet, 1 TAB PO BID, #20 TAB 0 Refills Prov:VIRGINIA FAM MD 01/18/19 Reported Medications Greene-3 Fatty Acids/Fish Oil (FISH OIL 1,000 MG CAPSULE) 1 Each Capsule, 1 EACH PO DAILY, CAPSULE 01/20/19 Docusate Sodium (COLACE) 100 Mg Capsule, 100 MG PO QDAY, CAPSULE 01/18/19 Aripiprazole (ABILIFY) 2 Mg Tablet, 1 TAB PO QDAY, TAB 01/17/19 Sertraline Hcl (ZOLOFT) 50 Mg Tablet, 1 TAB PO QDAY, TAB 01/17/19 Cholecalciferol (Vitamin D3) (VITAMIN D3) 1,000 Unit Tablet, 1 TAB PO QDAY, TAB 01/17/19 Folic Acid (FOLIC ACID) 0.8 Mg Tablet, 1 TAB PO QDAY 01/17/19 Trazodone Hcl (TRAZODONE HCL) 150 Mg Tablet, 150 MG PO QDAY 01/17/19 Levothyroxine Sodium (LEVOTHYROXINE SODIUM) 0.112 Mg Tab, 1 TAB PO QDAY, TAB 01/17/19 Thiamine Mononitrate (VITAMIN B-1) 100 Mg Tablet, 2.5 TAB PO DAILY 05/27/18 Multivits,Ca,Minerals/Iron/Fa (THERA-M TABLET) 1 Each Tablet, 1 TAB PO DAILY 05/27/18 Melatonin (MELATONIN) 5 Mg Tablet, 1 TAB PO HS 12/29/16 Follow up Referrals: General Surgery - 02/15/19 @ Surgery, General with VIRGINIA FAM MD You have a follow up appointment scheduled with Dr. Fam on 02/15/19, at 1:00pm. Diet: Regular Activity: As Tolerated Special Instructions: Your colonoscopy was completed without any problems and your prep was excellent (Good Job!!). I didn't find any cancer but I removed 5 polyps from your colon. I didn't find any inflammation or anything inside your colon that I can use to explain your abdominal pain. I recommend that you start the bowel regimen that I gave you at your appointment. I will see you back at your follow up appointment and I'll go over your pathology results with you at that time. I recommend that you undergo another colonoscopy in 3 years due to 1) your history of colon cancer, 2) your last colonoscopy was only just under 3 years ago and 3) you already had 5 polyps in your colon since your last colonoscopy. VIRGINIA FAM MD Jan 30, 2019 09:21
== END 2019-01-30 10:10 | disposition home or self-care (01) ==
LOC: OR 01:17
PROVIDERS: ATTEND Surgery
DX: D12.5 Benign neoplasm of sigmoid colon (principal); D12.3 Benign neoplasm of transverse colon; Z85.038 Personal history of other malignant neoplasm of large intestine; R10.9 Unspecified abdominal pain
CPT/HCPCS: 00811; 45385; 88305; J2704